=== PATIENT | female | born 1970 | race Caucasian/White ===

== ENCOUNTER 2019-04-29 14:44 | Emergency (ER) | payer SELFPAY ==
[2019-04-29 14:57] VITALS: BMI 26.5
--- NOTE | 2019-04-29 16:43 | PDOC ---
Documentation entered by Lacey Deluca SCRIBE, acting as scribe for Jorge Ivory MD. Jorge Ivory MD: This documentation has been prepared by the [employer], SCRIBE, under my direction and personally reviewed by me in its entirety. I confirm that the documentation accurately reflects all work, treatment, procedures, and medical decision making performed by me. Attending Attestation - Resident Resident Name: TonnyArtur - ED Attending Attestation I have performed the following: I have examined & evaluated the patient, The case was reviewed & discussed with the resident, I agree w/resident's findings & plan, Exceptions are as noted - HPI HPI: 04/29/19 15:54 The patient is a 49 year old female with a past medical history of HTN and HLD who presents to the emergency department for evaluation of right sided facial numbness since this morning. Patient reports waking up this morning with right sided facial numbness lasting for 6 hours. Patient also notes intermittent episodes of palpitations today prior to her arrival. Denies chest pain, shortness of breath, abdominal pain, headache, changes to vision/hearing, and dizziness. Denies nausea, vomiting, fevers, and chills. Allergies: No known allergies Social History: No reported alcohol, cigarette, or drug use. Surgical History: Tubal ligation - Physicial Exam PE: 04/29/19 15:55 ROS: A complete review of 10 out of 10 review of systems is taken and is negative apart from what is previously mentioned below and in the HPI. Exam: Vitals: Triage Vital signs reviewed General Appearance: no acute distress, well nourished well developed, Head: Atraumatic, Eyes: Pupils equal reactive round, extraocular movement intact Neck: Supple; Chest Wall: Nontender Cardiac: Regular rate and rhythm, no murmurs, no rubs, no gallops, Lungs: Clear to auscultation bilaterally, good air movement bilaterally, Abdomen: Soft, non distended, normal bowel sounds, non tender to palpation Extremities: Full range of motion to all extremities, no cyanosis, clubbing, or edema Skin: Warm and dry, no rashes or lesions, no rash, no petechiae Neuro: Strength intact to all extremities, Sensation intact to all extremities, gait normal Psych: normal mood, normal affect - Medical Decision Making 04/29/19 15:55 The patient is a 49 year old female with a past medical history of HTN and HLD who presents to the emergency department for evaluation of right sided facial numbness since this morning, lasting for 6 hours. Plan: EKG Head CT Scan Labs 04/29/19 18:30 Normal neurologic examination. No known cardiac or neurologic risk factors Given patient's numbness to her face a CAT scan was ordered which demonstrated no acute pathology. Her EKG demonstrated normal sinus rhythm with no ST elevations and no T-wave inversions which was interpreted by me. Her troponin was negative. Her heart score is 2. At this point patient very low risk for acute cardiac and neurologic event She will follow-up with her clinic on Sunday for further management Findings, need for follow-up and strict return instructions discussed patient. 04/29/19 18:30 Heart Score/ECG Review - History History: Slightly suspicious - Electrocardiogram EKG: Normal - Age Age: 45-65 - Risk Factors Risk Factors Heart Score: Yes Hx Hypertension Based on the list above the patient has:: 1-2 risk factors - Troponin Troponin: </= normal limit - Score Heart Score - Total: 2
--- NOTE | 2019-04-29 17:14 | PDOC ---
History of Present Illness - General Chief Complaint: CVA/TIA Stated Complaint: RT. FACE NUMBING Time Seen by Provider: 04/29/19 15:43 History Source: Patient Exam Limitations: No Limitations, Language Barrier (#[id number]) - History of Present Illness Initial Comments: 04/29/19 16:57 49yo woman with PMH HTN presenting with right face numbness since waking up at 10 this morning. Pt endorses the sensation of "anesthesia" in her right face upon awakening. Reports that she has felt "off" for several days but denies weakness, changes in voice or vision, CP, SOB, N, V, F, C. Only other symptom is clear phlem which she has had for "years." Never smoker. Reports normal ambulation. No dental history. NKDA HTZ 12.5 mg daily ASA for pain PRN FHx: Mother passed from pulmonary edema Past History - Travel Traveled outside of the country in the last 30 days: No Close contact w/someone who was outside of country & ill: No - Past Medical History Allergies/Adverse Reactions: Allergies Allergy/AdvReac Type Severity Reaction Status Date / Time No Known Allergies Allergy Verified 04/29/19 14:49 Home Medications: Ambulatory Orders Hydrochlorothiazide [Hctz -] 12.5 mg PO DAILY 04/29/19 Cardiac Disorders: Yes (murmur) COPD: No HTN: Yes - Suicide/Smoking/Psychosocial Hx Smoking History: Never smoked Review of Systems - Review of Systems Able to Perform ROS?: Yes (#[id number]) Is the patient limited German proficient: Yes Constitutional: Yes: Weight Stable. No: Symptoms Reported, Chills, Fever, Night Sweats, Weakness HEENTM: Yes: Symptoms Reported, See HPI. No: Eye Pain Respiratory: No: Symptoms reported, Cough, Orthopnea, Shortness of Breath, SOB at Rest Cardiac (ROS): No: Chest Pain, Edema, Irregular Heart Rate, Palpitations, Syncope ABD/GI: No: Abdominal Distended, Constipated, Diarrhea, Nausea, Vomiting : No: Symptoms Reported, Burning, Dysuria, Discharge, Frequency, Hematuria, Pain, Urgency Musculoskeletal: No: Symptoms Reported Integumentary: No: Symptoms Reported Neurological: Yes: Symptoms reported, Numbness, Tingling. No: Headache All Other Systems: Reviewed and Negative *Physical Exam - Vital Signs Last Vital Signs Temp Pulse Resp BP Pulse Ox 98.5 F 96 H 18 138/90 97 04/29/19 14:49 04/29/19 14:49 04/29/19 14:49 04/29/19 14:49 04/29/19 14:49 - Physical Exam Comments: 04/29/19 17:36 Vitals reviewed; afebrile, HDS HEENT: Normal dentition, EOMI, tachea midline, symmetrical, no droop, no ptosis Gen: WDWN woman, appears stated age, laying in bed CV: RRR, nl s1/s2, mild systolic murmur appreciated over left sternal border Pulm: CTABL, normal work of breathing, no wheezes / rales / rhonchi Abd: Soft, nontender, nondistended Pulses: 2+ radial, DP, PT Ext: WWP, no clubbing cyanosis edema, normal capillary refill Neuro: CN2-12 intact, R-sided pain/sensation reproducible with opening the mouth ED Treatment Course - LABORATORY CBC & Chemistry Diagram: 04/29/19 17:00 04/29/19 17:00 Medical Decision Making - Medical Decision Making 04/29/19 17:20 49yo woman with PMH HTN presenting with right face numbness since waking up at 10 this morning. Exam notable for reproducibility with open mouth, absence of focal neuro findings. Low likelihood of intracranial process, more likely TMJ vs neuropathy with possible viral vs compressive (neoplasm?) etiology. -CBC, CMP, beta HCG, Cardiac Profile -EKG -[facility] 04/29/19 17:50 -CBC, CMP unremarkable -Troponin negative -Beta negative -[facility] read pending 04/29/19 18:11 -[facility] without intracranial pathology *DC/Admit/Observation/Transfer Diagnosis at time of Disposition: Numbness and tingling - Discharge Dispostion Disposition: HOME Condition at time of disposition: Improved Decision to Admit order: No - Referrals Referrals: [facility] [place] [facility] [place] [Provider Group] - Patient Instructions Printed Discharge Instructions: DI for Numbness/tingling, DI for Muscle Weakness Additional Instructions: You have been seen for facial numbness. Your head CT was negative. Please follow up with the [facility] (provided in this packet) on Sunday at 10:30AM. If you experience any severe headache, new numbness / tingling, difficulty walking or speaking, please return to the emergency department. Te russell visto por entumecimiento facial. Tu tomografa fue negativa. Por favor, sixto un seguimiento con la [facility] (proporcionada en [place]) el viernes a las 10:30AM. Si usted experimenta cualquier dolor de boy prince, nuevo entumecimiento / hormigueo, dificultad para caminar o hablar, por favor regrese al departamento de emergencias. - Post Discharge Activity
[2019-04-29 17:37] LABS: BASO % 0.1 % (0-2.0); EOS % 0.4 % (0-4.5); HEMOGLOBIN 12.8 GM/dL (10.7-15.3); LYMPH % 19.2 % (8-40); MCH 25.8 pg (25.7-33.7); MCHC 32.8 g/dl (32.0-36.0); MEAN CELL VOLUME 78.5 fl (80-96); MEAN PLT VOLUME 8.1 fl (7.5-11.1); MONO % 9.2 % (3.8-10.2); NEUT % 71.1 % (42.8-82.8); PLATELET COUNT 270 K/MM3 (134-434); RBC 4.97 M/mm3 (3.60-5.2); RDW 15.9 % (11.6-15.6); WHITE BLOOD COUNT 6.4 K/mm3 (4.0-10.0)
[2019-04-29 17:40] LABS: ALBUMIN 3.8 g/dl (3.4-5.0); ALK PHOS 109 U/L (45-117); ANION GAP 6 MMOL/L (8-16); BILIRUBIN,TOTAL 0.2 mg/dL (0.2-1); BLOOD UREA NITROGEN 12.6 mg/dL (7-18); CALCIUM 9.4 mg/dL (8.5-10.1); CHLORIDE 102 mmol/L (98-107); CO2 31 mmol/L (21-32); CREATININE 0.6 mg/dL (0.55-1.3); GLUCOSE,RANDOM 106 mg/dL (74-106); POTASSIUM 4.5 mmol/L (3.5-5.1); SGOT/AST 15 U/L (15-37); SGPT/ALT 25 U/L (13-61); SODIUM 139 mmol/L (136-145); TOT PROT 7.8 g/dl (6.4-8.2)
[2019-04-29 18:10] VITALS: BP 139/87; PULSE 87
[2019-04-29 18:20] VITALS: TEMP 98.8
--- NOTE | 2019-04-30 14:33 | EKG ---
Test Reason : Blood Pressure : / mmHG Vent. Rate : 085 BPM Atrial Rate : 085 BPM P-R Int : 186 ms QRS Dur : 098 ms QT Int : 362 ms P-R-T Axes : 036 019 043 degrees QTc Int : 430 ms NORMAL SINUS RHYTHM CANNOT RULE OUT ANTERIOR INFARCT , AGE UNDETERMINED ABNORMAL ECG NO PREVIOUS ECGS AVAILABLE Confirmed by AMADOU CABAN MD ([id number]) on 04/30/2019 2:32:46 PM Referred By: Confirmed By:AMADOU CABAN MD
== END 2019-04-29 18:45 | disposition home or self-care (01) ==
LOC: JER 14:44
DX: R20.0 Anesthesia of skin (principal); I10 Essential (primary) hypertension
CPT/HCPCS: 36415; 70450-TC; 80053; 84484; 85025; 93005; 93010; 99284-25